=== PATIENT | female | born 1990 | race Caucasian/White ===

== ENCOUNTER 2020-02-26 14:37 | Outpatient (CLI) | payer OTHER, SELFPAY ==
--- NOTE | ~2020-02-26 | DEXA_ITS ---
Bone Density Report Name: Kylah Arroyo Age: 29 Sex: Female Ethnicity: White Date of : 1990 Indication: postmenopausal; height loss; Referring Provider: Gabriela Delgadillo Study: Bone densitometry was performed. Exam Date: February 26, 2020 Accession number: [id number] Bone Density: Region BMD T-score Z-score Classification AP Spine (L1-L4) 0.869 -1.6 -1.6 Osteopenia Femoral Neck (Left) 0.673 -1.6 -1.5 Osteopenia Total Hip (Left) 0.739 -1.7 -1.7 Osteopenia Total Hip Bilateral Avg 0.764 -1.5 -1.5 Osteopenia Femoral Neck (Right) 0.659 -1.7 -1.7 Osteopenia Total Hip (Right) 0.787 -1.3 -1.3 Osteopenia World Health Organization criteria for BMD impression classify patients as: Normal (T-score at or above -1.0), Osteopenia (T-score between -1.0 and -2.5), or Osteoporosis (T-score at or below -2.5). 10-year Fracture Risk(1): Major Osteoporotic Fracture 2.4% Hip Fracture 0.3% Reported Risk Factors: [place] (), Neck BMD=0.659, BMI=24.1 Input outside FRAX(R) limits. Adjusted to:Age=40 (1) FRAX(R) Version 3.08. Fracture probability calculated for an untreated patient. Fracture probability may be lower if the patient has received treatment. Clinical Information Provided by Patient: Patient maximum height was 66 No regular weight bearing exercise Drinks caffeinated beverages Onset of menses at age 14 Number of children 0 Impression: The patient has low bone mass, based on the Left Total Hip T-score. The patient has an estimated ten-year risk of hip fracture of 0.3% and an estimated ten-year risk of major fracture of 2.4%, based on the WHO FRAX algorithm. Discussion: BONE DENSITY IS LOW AT ONE OR MORE SKELETAL SITES. This patient's lowest T-score is low at one or more skeletal sites. It meets the World Health Organization's (WHO) criteria for ?low bone mass? (T-score between -1.0 and -2.5). The patient's 10-year risk of fracture as calculated by FRAX is less than the threshold where pharmacological therapy is recommended by the National Osteoporosis Foundation (NOF). However, all treatment decisions require clinical judgment and consideration of individual patient factors, including patient preferences, comorbidities, previous drug use, risk factors not captured in the FRAX model (e.g., frailty, falls, vitamin D deficiency, increased bone turnover, interval significant decline in bone density) and possible under or overestimation of fracture risk by FRAX. The patient should follow a healthful lifestyle (good nutrition with adequate calcium and vitamin D, and appropriate weight-bearing exercise). Follow-Up: Consider repeating this study in 2 to 3 years to reassess this patient's status, or sooner if there is some new clinical indication. Reported by: AJ on 02/26/2020 3:09:00 PM.
== END 2020-02-26 14:38 | disposition home or self-care (01) ==
LOC: ANHIMG 14:42
PROVIDERS: PCP Nurse Practitioner Family; Visit Provider Advanced Practice Midwife
DX: Z79.3 Long term (current) use of hormonal contraceptives (principal); M85.89 Other specified disorders of bone density and structure, multiple sites
CPT/HCPCS: 77080

== ENCOUNTER 2020-12-19 15:22 | Outpatient (CLI) | payer OTHER, SELFPAY ==
--- NOTE | ~2020-12-19 | US_ITS ---
EXAMINATION: US thyroid DATE: 12/19/2020 15:52 INDICATION: Goiter and thyroid cysts. TECHNIQUE: Multiple ultrasound images of the thyroid were obtained. COMPARISON: None. FINDINGS: The right thyroid lobe measures 5.6 x 1.6 x 1.9 cm. The left thyroid lobe measures 4.6 x 1.2 x 1.5 c m. There are multiple anechoic cystic or predominantly cystic nodules (TI-RADS 1, benign, no FNA rec ommended) throughout the left and right thyroid lobes. The largest measures 1.9 cm at the lower pole of the right thyroid. There is normal echotexture, echogenicity and vascular flow throughout the surr ounding thyroid gland. IMPRESSION: 1. Multiple bilateral TI RADS 1 cystic or predominantly cystic thyroid nodules, the largest measuring 1.9 cm at the lower pole of the right thyroid, which require no biopsy or further follow-up. Reviewed, dictated and finalized at location B. IMPRESSION: 1. Multiple bilateral TI RADS 1 cystic or predominantly cystic thyroid nodules, the largest measuring 1.9 cm at the lower pole of the right thyroid, which req uire no biopsy or further follow-up.
--- NOTE | ~2020-12-19 | XR_ITS ---
EXAMINATION: XR foot RT min 3V DATE: 12/19/2020 15:42 INDICATION: Fracture at the right fifth toe TECHNIQUE: Dorsoplantar, two oblique and lateral views of the right foot were obtained. COMPARISON: None. FINDINGS: Oblique fracture at the distal metadiaphyseal region of the right fifth proximal phalanx. There is no n to millimeter lateral displacement and mild lateral angulation. There is some sclerosis and negligi ble lucency along the fracture plane suggesting a subacute chronicity with healing. No other fracture s identified. Otherwise normal alignment throughout the right foot. The profiled joint spaces appear relatively preserved. Soft tissues are unremarkable. IMPRESSION: 1. Likely healing extra articular fracture at the neck of the right fifth proximal phalanx with mild lateral displacement and angulation. Reviewed, dictated and finalized at location B. IMPRESSION: 1. Likely healing extra articular fracture at the neck of the right fifth proxi mal phalanx with mild lateral displacement and angulation.
== END 2020-12-19 15:23 | disposition home or self-care (01) ==
PROVIDERS: PCP Nurse Practitioner Family; Visit Provider Nurse Practitioner Family
DX: S92.504D Nondisplaced unspecified fracture of right lesser toe(s), subsequent encounter for fracture with routine healing (principal); X58.XXXD Exposure to other specified factors, subsequent encounter
CPT/HCPCS: 73630; 76536

== ENCOUNTER 2020-12-24 08:20 | Outpatient (CLI) | payer OTHER, SELFPAY ==
[2020-12-24 08:49] LABS: Basophils Percent Auto 0.6 % (0.2-1.2); Eosinophils Absolute Auto 0.1 K/mm3 (0-0.3); Eosinophils Percent Auto 2.7 % (0-4.4); Hematocrit 40.7 % (37.0-47.0); Hemoglobin 13.7 g/dL (12.0-15.0); Immature Granulocyte Absolute 0.01 K/mm3 (0.00-0.031); Immature Granulocyte Percent A 0.2 % (0-0.5); Lymphocytes Absolute Auto 1.69 K/mm3 (0.9-3.2); Lymphocytes Percent Auto 34.6 % (18.3-44.2); Mean Corpuscular HGB Conc 33.7 g/dl (32-36); Mean Corpuscular Hemoglobin 31.5 pg (26-34); Mean Corpuscular Volume 93.6 fl (80-100); Mean Platelet Volume 10.4 fl (7.4-10.4); Monocytes Absolute Auto 0.4 K/mm3 (0.1-0.6); Monocytes Percent Auto 8.2 % (2.6-8.5); Neutrophils Absolute Auto 2.6 K/mm3 (1.3-6.7); Neutrophils Percent Auto 53.7 % (45.5-73.1); Platelet Count Result 235 k/mm3 (150-375); Red Blood Count 4.35 M/mm3 (4.2-5.4); Red Cell Distribution Width 12.1 % (11.5-14.5); White Blood Count 4.9 K/mm3 (4.5-10.0)
[2020-12-24 09:05] LABS: Alanine Aminotransferase 10 U/L (4-35); Albumin Level 4.5 g/dL (3.5-5.1); Alkaline Phosphatase 57 U/L (38-126); Anion Gap 8 mmol/L (8-16); Aspartate Amino Transferase 15 U/L (14-36); Bilirubin,Total 0.4 mg/dL (0.2-1.3); Blood Urea Nitrogen 9 mg/dL (7-17); Calcium 9.2 mg/dL (8.4-10.2); Carbon Dioxide 27 mmol/L (22-30); Chloride 107 mmol/L (98-107); Cholesterol 117 mg/dL (0-200); Estimated Glomerular Filt Rate > 60; Glucose 92 mg/dL (65-105); HDL Direct 31 mg/dL; Potassium 4.1 mmol/L (3.4-5.0); Sodium 142 mmol/L (137-145); Triglycerides 62 mg/dL (<150); Uric Acid 4.4 mg/dL (2.5-7.5)
[2020-12-24 09:16] LABS: LDL Cholesterol Direct 69 mg/dL
[2020-12-24 09:36] LABS: Vitamin D 25 Hydroxy 90.9 ng/mL
[2020-12-24 10:09] LABS: Folic Acid 8.8 ng/mL (2.76->20)
== END 2020-12-24 08:21 | disposition home or self-care (01) ==
PROVIDERS: PCP Nurse Practitioner Family; Visit Provider Nurse Practitioner Family
DX: R53.83 Other fatigue (principal); E61.1 Iron deficiency; N92.1 Excessive and frequent menstruation with irregular cycle
CPT/HCPCS: 36415; 80053; 80061; 82306; 82607; 82746; 84443; 84550; 85025

== ENCOUNTER 2020-12-28 15:44 | Outpatient (CLI) | payer OTHER, SELFPAY ==
[2020-12-28 16:09] LABS: Add Urine Microscopic? NO; Appearance Urine Clear (Clear); Bilirubin Urine Negative (Negative); Blood Urine Negative (Negative); Color Urine Yellow (Yellow); Glucose Urine UA Negative (Negative); Ketones Urine Negative (Negative); Leukocyte Esterase Ur Negative LEU/UL (Negative); Nitrate Urine Negative (Negative); Protein Urine Negative (Negative); Specific Grav Ur 1.011 (1.001-1.035); Urobilinogen Urine Negative mg/dL (<2.0)
== END 2020-12-28 15:45 | disposition home or self-care (01) ==
PROVIDERS: PCP Nurse Practitioner Family; Visit Provider Nurse Practitioner Family
DX: R53.83 Other fatigue (principal)
CPT/HCPCS: 81003

== ENCOUNTER 2022-01-13 16:00 | Emergency (ER) | payer OTHER, SELFPAY ==
[2022-01-13 16:07] VITALS: BP 122/78; PULSE 66; RESP 16; TEMP 38.2; O2SAT 100
--- NOTE | 2022-01-13 16:11 | ED.EAR ---
HPI - Ear Problem General Chief complaint: Ear Stated complaint: Ear Pain Time Seen by Provider: 01/13/22 16:11 Source: patient, RN notes reviewed and old records reviewed Mode of arrival: ambulatory Limitations: no limitations History of Present Illness HPI Narrative: 31-year-old female presents to the [facility] with complaints of left ear pain since Saturday, 3 days. Has used some type of eardrop with no relief. No other treatment prior to arrival. Denies blurry vision or change in vision. States the pain radiates into her jaw. Denies chest pain or shortness of breath. No abdominal pain. Denies fevers. MD Complaint: ear pain Location: left ear Duration: constant Related Data Home Medications Medication Instructions Recorded Confirmed norethindrone (contraceptive) 0.35 mg PO DAILY 01/13/22 01/13/22 Allergies Allergy/AdvReac Type Severity Reaction Status Date / Time latex Allergy Unknown Rash Verified 01/13/22 16:01 metronidazole Allergy Unknown SOB Verified 01/13/22 16:01 Review of Systems Review of Systems: All systems reviewed & are unremarkable except as noted in HPI and below Constitutional: Constitutional: Reports no additional constitutional complaints, Denies chills and Denies fever(s) Eyes: Eyes: Reports no additional eye complaints ENT: Reports as per HPI, Denies change in voice, Denies dental pain, Denies vertigo, Denies dizziness and Denies throat swelling Comments: Ear pain, left Cardiovascular: Cardiovascular: Reports no additional cardiovascular complaints, Denies chest pain and Denies dyspnea Respiratory: Respiratory: Reports no additional respiratory complaints, Denies cough and Denies dyspnea Gastrointestinal: Gastrointestinal: Reports no additional gastrointestinal complaints, Denies abdominal pain, Denies nausea and Denies vomiting Musculoskeletal: Musculoskeletal: Reports no additional musculoskeletal complaints Integumentary/Breasts: Skin/Breast: Reports system reviewed and no additional complaints, except as docu Neurologic: Reports system reviewed and no additional complaints, except as documented, Denies vertigo and Denies dizziness Psychiatric: Psychiatric: Reports no additional psychiatric complaints Allergic/Immunologic: Allergic/Immunologic: Reports no additional allergic/immunologic complaints and Denies throat swelling PMFSH Past Medical History Medical History Endometriosis Migraine Osteopenia Vitamin D deficiency Surgical History Surgical History History of laparoscopy 09/01 Family History Family History Other Breast cancer Skin cancer Thyroid cancer Social History Social History Smoking status: Never smoker Alcohol intake: never Comments At the time of my signature, I reviewed and agree with the nursing past medical, surgical, social, and family history. There is no relevant family history pertinent to the patient complaint. Exam Const: General: healthy appearing, no acute distress and alert Nutritional Appearance: well nourished Orientation/consciousness: patient oriented x3 Limitations: no limitations HENMT: Head: normal to inspection Ears: external ears normal, TM normal on the right, EAC's normal, mastoids normal and TM abnormal bulging on the left, dull on the left, wth effusion purulent on the left and with loss of landmarks on the left; not erythematous General nose exam: Normal external nose present and Normal nasal mucous membranes and turbinates present Face and sinus: normal facial exam Mouth: Yes Normal oral and palatal mucosa present Teeth and gingiva: dentition normal Throat: posterior oropharynx normal, tonsils normal and uvula midline Eyes: Conjunctivae: conjunctivae normal Pupils: Equal, round and reactiv
== END 2022-01-13 16:20 | disposition home or self-care (01) ==
PROVIDERS: Emergency Provider Nurse Practitioner; PCP Nurse Practitioner Family
DX: H66.92 Otitis media, unspecified, left ear (principal)
CPT/HCPCS: 99213; G0463

== ENCOUNTER 2022-02-06 14:59 | Outpatient (CLI) | payer OTHER, SELFPAY ==
--- NOTE | ~2022-02-06 | DEXA_ITS ---
Bone Density Report Name: MARK WORLEY Age: 31 Sex: Female Ethnicity: White Date of : 1990 Indication: osteopenia, depo-provera use Referring Provider: Easton JENKINS Study: Bone densitometry was performed. Exam Date: February 06, 2022 Accession number: [id number] Bone Density: Region BMD T-score Z-score Classification AP Spine(L1-L4) 0.967 -0.7 Femoral Neck (Left) 0.739 -0.9 Total Hip (Left) 0.802 -1.1 Femoral Neck (Right) 0.714 -1.1 Total Hip (Right) 0.807 -1.1 Total Hip Mean 0.804 -1.1 World Health Organization criteria for BMD impression classify patients as: Normal (T-score at or above -1.0), Osteopenia (T-score between -1.0 and -2.5), or Osteoporosis (T-score at or below -2.5). 10-year Fracture Risk: FRAX not reported because: Premenopausal woman Previous Exams: Region Exam Age BMD T-score BMD Change BMD Change Date g/cm2 vs Baseline vs Previous AP Spine (L1-L4) 02/06/2022 31 0.967 0.098 (11.3%)* 0.098 (11.3%)* 02/26/2020 29 0.869 Total Hip(Left) 02/06/2022 31 0.802 0.063 (8.5%)* 0.063 (8.5%)* 02/26/2020 29 0.739 Total Hip(Right) 02/06/2022 31 0.807 0.020 (2.5%) 0.020 (2.5%) 02/26/2020 29 0.787 *Denotes significance at 95% confidence level, LSC for AP Spine = 0.022 g/cm2, LSC for Total Hip = 0.027 g/cm2 Clinical Information Provided by Patient: Has used the following medications: Vitamin D, Calcium Patient maximum height was 65 Drinks caffeinated beverages Onset of menses at age 14 Premenopausal Number of children 0 Impression: The patient's bone mass is within expected range for age, gender and ethnicity. No significant bone loss was observed. Discussion: BONE DENSITY IS WITHIN EXPECTED LIMITS FOR AGE, SEX AND RACE. Bone density is within expected limits for age, sex and race at all sites measured. The patient should follow a healthful lifestyle (good nutrition with adequate calcium and vitamin D, and appropriate weight-bearing exercise). Follow-Up: Consider repeating this study in 5 years or sooner if there is some new clinical indication. Reported by: AJ on 02/06/2022 3:53:00 PM. Reviewed, dictated and finalized at [facility]
== END 2022-02-06 15:00 | disposition home or self-care (01) ==
PROVIDERS: PCP Nurse Practitioner Family; Visit Provider Obstetrics & Gynecology
DX: M85.80 Other specified disorders of bone density and structure, unspecified site (principal)
CPT/HCPCS: 77080

== ENCOUNTER 2022-02-27 16:10 | Outpatient (CLI) | payer OTHER, SELFPAY ==
--- NOTE | ~2022-02-27 | US_ITS ---
EXAMINATION: US thyroid DATE: 02/27/2022 16:09 INDICATION: Goiter. TECHNIQUE: Multiple ultrasound images of the thyroid were obtained. COMPARISON: Thyroid ultrasound 12/19/2020 FINDINGS: The right thyroid lobe measures 5.7 x 1.9 x 1.8 cm. The left thyroid lobe measures 4.5 x 1.2 x 1.6 c m. In the right thyroid lobe, there is a 1.8 cm mixed cystic and solid, isoechoic, [id number]-[id number] n odule with smooth margin without echogenic foci (TI-RADS TR2). In the left thyroid lobe, there is an 8 mm mixed cystic and solid, hypoechoic, gfflq-eoru-pocc nodule with lobulated margin without echogen ic foci (TR4). IMPRESSION: 1. Stable thyroid nodules, likely not clinically significant. No follow-up is needed. Reviewed, dictated and finalized at location B. IMPRESSION: 1. Stable thyroid nodules, likely not clinically significant. No follow-up is n eeded.
== END 2022-02-27 16:11 | disposition home or self-care (01) ==
PROVIDERS: PCP Nurse Practitioner Family; Visit Provider Nurse Practitioner Family
DX: E04.2 Nontoxic multinodular goiter (principal)
CPT/HCPCS: 76536

== ENCOUNTER 2022-03-01 15:40 | Outpatient (CLI) | payer OTHER, SELFPAY ==
[2022-03-01 16:14] LABS: Basophils Percent Auto 0.5 % (0.2-1.2); Eosinophils Absolute Auto 0.1 K/mm3 (0-0.3); Eosinophils Percent Auto 2.1 % (0-4.4); Hematocrit 41.1 % (37.0-47.0); Hemoglobin 13.8 g/dL (12.0-15.0); Immature Granulocyte Absolute 0.02 K/mm3 (0.00-0.031); Immature Granulocyte Percent A 0.3 % (0-0.5); Lymphocytes Absolute Auto 1.78 K/mm3 (0.9-3.2); Lymphocytes Percent Auto 30.8 % (18.3-44.2); Mean Corpuscular HGB Conc 33.6 g/dl (32-36); Mean Corpuscular Hemoglobin 31.2 pg (26-34); Mean Corpuscular Volume 92.8 fl (80-100); Mean Platelet Volume 10.2 fl (7.4-10.4); Monocytes Absolute Auto 0.4 K/mm3 (0.1-0.6); Monocytes Percent Auto 7.6 % (2.6-8.5); Neutrophils Absolute Auto 3.4 K/mm3 (1.3-6.7); Neutrophils Percent Auto 58.7 % (45.5-73.1); Platelet Count Result 255 k/mm3 (150-375); Red Blood Count 4.43 M/mm3 (4.2-5.4); White Blood Count 5.8 K/mm3 (4.5-10.0)
[2022-03-01 16:41] LABS: Bilirubin Urine Negative (Negative); Blood Urine Negative (Negative); Color Urine Yellow (Yellow); Glucose Urine UA Negative (Negative); Ketones Urine Negative (Negative); Leukocyte Esterase Ur Negative LEU/UL (NEGATIVE); Nitrate Urine Negative (Negative); Protein Urine Negative (Negative); Urobilinogen Urine 0.2 mg/dL (<2.0)
[2022-03-01 16:46] LABS: Add Urine Microscopic? NO; Appearance Urine Clear (Clear)
[2022-03-01 19:51] LABS: Alanine Aminotransferase 11 U/L (6-35); Albumin Level 4.7 g/dL (3.5-5.1); Alkaline Phosphatase 71 U/L (38-126); Anion Gap 9 mmol/L (8-16); Aspartate Amino Transferase 17 U/L (14-36); Bilirubin,Total 0.2 mg/dL (0.2-1.3); Blood Urea Nitrogen 11 mg/dL (7-17); Calcium 9.3 mg/dL (8.4-10.2); Carbon Dioxide 24 mmol/L (22-30); Chloride 108 mmol/L (98-107); Cholesterol 132 mg/dL (0-200); Estimated Glomerular Filt Rate > 60; Glucose 87 mg/dL (65-110); HDL Direct 31 mg/dL; Sodium 141 mmol/L (137-145); Triglycerides 90 mg/dL (<150); Uric Acid 4.5 mg/dL (2.5-7.5)
[2022-03-01 20:02] LABS: LDL Cholesterol Direct 72 mg/dL
[2022-03-01 20:49] LABS: Vitamin D 25 Hydroxy 96.7 ng/mL
[2022-03-01 21:06] LABS: Folic Acid > 20.0 ng/mL (2.76->20)
== END 2022-03-01 15:41 | disposition home or self-care (01) ==
PROVIDERS: PCP Nurse Practitioner Family; Visit Provider Nurse Practitioner Family
DX: E55.9 Vitamin D deficiency, unspecified (principal); R63.4 Abnormal weight loss; E61.1 Iron deficiency; E04.9 Nontoxic goiter, unspecified; N64.3 Galactorrhea not associated with childbirth
CPT/HCPCS: 36415; 80053; 80061; 81003; 82306; 82607; 82746; 84443; 84550; 85025

== ENCOUNTER → 2022-03-06 14:16 | Outpatient (REF) | payer OTHER, SELFPAY | LOC: ANHLAB 14:16 | PROVIDERS: PCP Nurse Practitioner Family; Visit Provider Nurse Practitioner | DX: C43.71 Malignant melanoma of right lower limb, including hip (principal) | CPT/HCPCS: 88305 ==

== ENCOUNTER → 2022-03-13 15:17 | Outpatient (REF) | payer OTHER, SELFPAY | LOC: ANHLAB 15:17 | PROVIDERS: PCP Nurse Practitioner Family; Visit Provider Nurse Practitioner | DX: C43.9 Malignant melanoma of skin, unspecified (principal) | CPT/HCPCS: 88305 ==

== ENCOUNTER 2022-03-19 10:33 | Emergency (ER) | payer OTHER, SELFPAY ==
[2022-03-19 10:53] VITALS: BP 127/68; PULSE 79; RESP 16; TEMP 37.1; O2SAT 99
--- NOTE | 2022-03-19 10:54 | ED.SKABFB ---
HPI - Skin/Abscess/Foreign Bdy General Chief complaint: Extremity Problem,Nontraumatic Stated complaint: pain and swelling on rt leg Time Seen by Provider: 03/19/22 10:54 Source: patient, RN notes reviewed and old records reviewed Mode of arrival: ambulatory Limitations: no limitations History of Present Illness HPI narrative: 31-year-old female presents to the [facility] with complaints of pain, redness and swelling to the posterior right calf at the medial, posterior knee. Patient had a skin biopsy done, had to return to have more skin removed due to cancer. Developed pain, redness and inflammation yesterday. Has had some thick white discharge. No fluctuance noted. Increased warmth noted Denies fevers Onset (ago): day(s) (1) Related Data Home Medications Medication Instructions Recorded Confirmed norethindrone (contraceptive) 0.35 0.35 mg PO DAILY 01/13/22 03/19/22 mg tablet Allergies Allergy/AdvReac Type Severity Reaction Status Date / Time latex Allergy Unknown Rash Verified 03/19/22 10:50 metronidazole Allergy Unknown SOB Verified 03/19/22 10:50 Review of Systems Review of Systems: All systems reviewed & are unremarkable except as noted in HPI and below Constitutional: Constitutional: Reports no additional constitutional complaints, Denies chills and Denies fever(s) Eyes: Eyes: Reports no additional eye complaints ENT: Reports system reviewed and no additional complaints, except as documented Cardiovascular: Cardiovascular: Reports no additional cardiovascular complaints Respiratory: Respiratory: Reports no additional respiratory complaints Gastrointestinal: Gastrointestinal: Reports no additional gastrointestinal complaints Musculoskeletal: Musculoskeletal: Reports no additional musculoskeletal complaints Integumentary/Breasts: Skin/Breast: Reports as per HPI and Reports erythema Neurologic: Reports system reviewed and no additional complaints, except as documented Psychiatric: Psychiatric: Reports no additional psychiatric complaints Allergic/Immunologic: Allergic/Immunologic: Reports no additional allergic/immunologic complaints REPLACED BY [facility] Past Medical History Medical History (Updated 03/19/22 @ 11:14 by Ade Urbina APRN) Endometriosis Migraine Osteopenia Vitamin D deficiency Surgical History Surgical History History of laparoscopy 09/01 Family History Family History Other Breast cancer Skin cancer Thyroid cancer Social History Social History Smoking status: Never smoker Alcohol intake: never Comments At the time of my signature, I reviewed and agree with the nursing past medical, surgical, social, and family history. There is no relevant family history pertinent to the patient complaint. Exam Const: General: healthy appearing, no acute distress and alert Nutritional Appearance: well nourished Orientation/consciousness: patient oriented x3 Limitations: no limitations HENMT: Head: normal to inspection Ears: external ears normal Eyes: General: appearance normal, both eyes and all related structures Pupils: Equal, round and reactive pupils present Neck: Neck: normal visual inspection, no lymphadenopathy and no meningeal signs Chest: Chest palpation & inspection: normal inspection of the chest Resp: Effort & Inspection: normal respiratory effort and no use of accessory muscles Auscultation: clear to auscultation bilaterally, no crackles, no rales, no rhonchi and no wheezes Cardio: Rate: regular rate Rhythm: regular rhythm GI: GI Palp: Yes Soft to palpation and No Tenderness to palpation present (GI) Back/Spine/Pelvis: Cervical Spine: normal cervical lordosis Thoracic/Lumbar Spine: thoracic and lumbar spine normal to inspection Skin: General skin exam: normal color Rashes: no rashes Wou
== END 2022-03-19 11:23 | disposition home or self-care (01) ==
PROVIDERS: Emergency Provider Nurse Practitioner; PCP Nurse Practitioner Family
DX: L03.115 Cellulitis of right lower limb (principal); M85.80 Other specified disorders of bone density and structure, unspecified site; N80.9 Endometriosis, unspecified
CPT/HCPCS: 99213; G0463